=== PATIENT | female | born 1980 | race Caucasian/White ===

== ENCOUNTER 2019-10-05 19:30 | Emergency (ER) | payer OTHER, SELFPAY ==
[2019-10-05 19:28] VITALS: BP 134/93; PULSE 94; RESP 16; TEMP 36.8; O2SAT 99
--- NOTE | 2019-10-05 19:33 | ED.OVERDOSE ---
HPI - Overdose General Chief Complaint: Overdose <Carmen Bui MD - Last Filed: 10/06/19 00:03> Stated Complaint: OD <Carmen Bui MD - Last Filed: 10/06/19 00:03> Time Seen by Provider: 10/05/19 19:33 <Carmen Bui MD - Last Filed: 10/06/19 00:03> Source: patient and EMS <Carmen Biu MD - Last Filed: 10/06/19 00:03> Mode of arrival: EMS <Carmen Bui MD - Last Filed: 10/06/19 00:03> Limitations: no limitations <Carmen Bui MD - Last Filed: 10/06/19 00:03> History of Present Illness HPI Narrative: A 39 y/o female presents to the ED, via EMS, with c/o of a Fentanyl OD. Pt states that she was at a gas station and found a bag of what appeared to be Fentanyl in the bathroom. Pt snorted the Fentanyl and is unsure if she passed out or not. Pt has thoughts of self harm stating that she has been having problems with her . Pt cut her left wrist at home a few days ago because she was mad at myself because I felt like my didn't want to be with me anymore. 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 The issues she has been having with her have caused her to relapse. She denies alcohol use today. Per EMS, pt was found at home and not at a gas station. Pt's called EMS. <Carmen Bui MD - Last Filed: 10/06/19 00:03> Context: Intentional Overdose: relationship problems <Carmen Bui MD - Last Filed: 10/06/19 00:03> Related Data Allergies/Adverse Reactions: Allergies Allergy/AdvReac Type Severity Reaction Status Date / Time No Known Allergies Allergy Unverified 05/25/17 09:43 <Carmen Bui MD - Last Filed: 10/06/19 00:03> Review of Systems Review of Systems: All systems reviewed & are unremarkable except as noted in HPI and below <Carmen Bui MD - Last Filed: 10/06/19 00:03> Constitutional: Constitutional: Denies chills, Denies fever(s), Denies headache(s) and Denies weakness <Carmen Bui MD - Last Filed: 10/06/19 00:03> Comments: Reports: Fentanyl OD <Carmen Bui MD - Last Filed: 10/06/19 00:03> Eyes: Eyes: Denies blurry vision <Carmen Bui MD - Last Filed: 10/06/19 00:03> ENT: Denies headache(s) and Denies neck pain <Carmen Bui MD - Last Filed: 10/06/19 00:03> Cardiovascular: Cardiovascular: Denies chest pain and Denies dyspnea <Carmen Bui MD - Last Filed: 10/06/19 00:03> Respiratory: Respiratory: Denies cough and Denies dyspnea <Carmen Bui MD - Last Filed: 10/06/19 00:03> Gastrointestinal: Gastrointestinal: Denies abdominal pain, Denies diarrhea, Denies nausea and Denies vomiting <Carmen Bui MD - Last Filed: 10/06/19 00:03> Genitourinary: Genitourinary: Denies hematuria and Denies dysuria <Carmen Bui MD - Last Filed: 10/06/19 00:03> Musculoskeletal: Musculoskeletal: Denies back pain and Denies neck pain <Carmen Bui MD - Last Filed: 10/06/19 00:03> Comments: Reports: cut to left wrist <Carmen Bui MD - Last Filed: 10/06/19 00:03> Neurologic: Denies headache(s) and Denies weakness <Carmen Bui MD - Last Filed: 10/06/19 00:03> Psychiatric: Psychiatric: Reports suicidal ideation <Carmen Bui MD - Last Filed: 10/06/19 00:03> PMFSH Past Medical History Medical History: Medical History (Updated 10/06/19 @ 03:17 by Jason Price MD) Anxiety Depression HTN (hypertension) <Carmen Bui MD - Last Filed: 10/06/19 00:03> Surgical History Surgical History: Surgical History (Updated 10/05/19 @ 19:39 by Akiko Foote) Hx of cholecystectomy <Carmen Bui MD - Last Filed: 10/06/19 00:03> Social History Social History: Social History (Updated 10/05/19 @ 19:39 by Akiko Foote) Smoking status: Smoker, status unknown <Carmen Bui MD - Last Filed: 10/06/19 00:03> Comments PCP: Dr. Corado <Carmen Bui MD - Last Filed: 10/06/19 00:03> Exam Const: General: no acute distress and w
[2019-10-05 19:35] VITALS: RESP 12
--- NOTE | 2019-10-05 19:45 | PC.NURSE ---
pt seen by dr buchanan asked if she had thoughts of self harm, she stated yes. pt noted to have superficial cuts to inside of left wrist pt will have sitter, pt to be seen for crisis when medically clear
[2019-10-05 20:17] LABS: Hemoglobin 15.1 g/dL (12.0-15.0); Mean Corpuscular HGB Conc 32.8 g/dl (32-36); Mean Corpuscular Hemoglobin 28.1 pg (26-34); Mean Corpuscular Volume 85.7 fl (80-100); Mean Platelet Volume 11.3 fl (7.4-10.4); Platelet Count Result 305 k/mm3 (150-375); Red Blood Count 5.37 M/mm3 (4.2-5.4); Red Cell Distribution Width 13.2 % (11.5-14.5); White Blood Count 25.8 K/mm3 (4.5-10.0)
[2019-10-05 20:21] LABS: Add Urine Microscopic? YES; Appearance Urine Clear (Clear); Bacteria Urine Trace /hpf; Bilirubin Urine Negative (Negative); Blood Urine Negative (Negative); Color Urine Yellow (Yellow); Glucose Urine UA 3+ mg/dL (Negative); Ketones Urine Negative (Negative); Leukocyte Esterase Ur Negative LEU/UL (Negative); Mucus Urine Rare /lpf; Nitrate Urine Negative (Negative); Protein Urine 2+ mg/dL (Negative); Specific Grav Ur 1.016 (1.001-1.035); Squamous Epithelial Cell Urine Rare /hpf (Few); Urobilinogen Urine Negative mg/dL (<2.0); WBC Urine 0-3 /hpf
[2019-10-05 20:29] LABS: Ethanol < 10 mg/dL (<10)
[2019-10-05 20:30] LABS: Alanine Aminotransferase 17 U/L (4-35); Albumin Level 4.4 g/dL (3.5-5.1); Alkaline Phosphatase 76 U/L (38-126); Aspartate Amino Transferase 20 U/L (14-36); Bilirubin,Total 0.3 mg/dL (0.2-1.3); Blood Urea Nitrogen 13 mg/dL (7-17); Calcium 9.1 mg/dL (8.4-10.2); Carbon Dioxide 24 mmol/L (22-30); Chloride 104 mmol/L (98-107); Estimated CRCL calculation 61 ml/min; Estimated Glomerular Filt Rate 55; Glucose 271 mg/dL (65-105); Potassium 4.2 mmol/L (3.4-5.0); Sodium 142 mmol/L (137-145)
[2019-10-05 20:36] LABS: Band Neutrophils Percent 2 % (0-6); Lymphocytes Absolute Manual 3.09 K/mm3 (1.1-4.5); Monocytes Percent Manual 7 % (3-9); Neutrophils Absolute Manual 20.89 K/mm3 (1.7-7.2); Neutrophils Percent Manual 79 % (46-73); Total Cells Counted 100
[2019-10-05 20:37] LABS: Platelet Estimate Adequate (Adequate)
[2019-10-05 21:52] VITALS: BP 105/61; PULSE 89; RESP 16; O2SAT 98
[2019-10-05 22:09] LABS: Amphetamine Screen Urine Positive (Negative); Barbiturate Screen Urine Negative (Negative); Benzodiazepines Screen Urine Negative (Negative); Cannabinoid Screen Urine Negative (Negative); Cocaine Screen Urine Positive (Negative); Methadone Screen Urine Negative (Negative); Opiate Screen Urine Negative (Negative); Phencyclidine Screen Urine Negative (Negative)
[2019-10-06 03:33] VITALS: BP 121/76; PULSE 84; RESP 20; O2SAT 99
== END 2019-10-06 03:37 | disposition home or self-care (01) ==
PROVIDERS: Emergency Provider Emergency Medicine
DX: T40.4X1A Poisoning by other synthetic narcotics, accidental (unintentional), initial encounter (principal); I10 Essential (primary) hypertension
CPT/HCPCS: 36415; 80053; 80307; 81001; 81025; 85025; 99284; J2310